=== PATIENT | female | born 1945 | race Caucasian/White ===

== ENCOUNTER → 2016-07-31 | Outpatient (CLI) | payer BC ==
[~2016-07-31] MED LIST: ATV/1 PO; COEN90TA PO; Calcium PO; LEVO50TA6 PO; METO25TA3 PO; MULT-506 PO; SERT50TA PO; SIMV20TA5 PO; TPRSR/25 PO
--- NOTE | 2016-08-01 07:42 | MAMMOGRAPHY REPORT ---
BILATERAL DIGITAL SCREENING MAMMOGRAM WITH CAD: 07/31/2016 CLINICAL HISTORY: Routine screening. Patient has no complaints. TECHNIQUE: Current study was also evaluated with a Computer Aided Detection (CAD) system. Bilatera l CC and MLO views were obtained. COMPARISON: Comparison is made to exams dated: 07/31/2015 mammogram, 06/18/2012 mammogram, 06/18/2010 m ammogram - [facility], 05/23/2008, 05/20/2007, and 05/19/2006. BREAST COMPOSITION: There are scattered areas of fibroglandular density in both breasts. FINDINGS: There are possible faint grouped calcifications seen within the left upper outer quadrant , for which spot magnification views are recommended for further evaluation. The remainder of both breasts are stable compared to prior exams, without suspicious masses, calcifi cations, or areas of architectural distortion noted. Other scattered bilateral coarse benign-appear ing calcifications are again noted. IMPRESSION: ACR BI-RADS CATEGORY 0: INCOMPLETE EVALUATION: NEED ADDITIONAL IMAGING EVALUATION Left upper outer quadrant calcifications, for which additional imaging evaluation is recommended. T he patient will be called to schedule an appointment. Approximately 10% of breast cancers are not detected with mammography. A negative mammographic repor t should not delay biopsy if a clinically suggestive mass is present. Jazmin Armstrong M.D. ah/:07/31/2016 16:35:17 Propeller Engineer: Monika BREAUX(R)(M), [facility] letter sent: Addl Imaging 0 BI-RADS Code: ACR BI-RADS Category 0: Incomplete Evaluation: Need Additional Imaging Evaluation
== END | disposition home or self-care (01) ==
LOC: C.MAMM 14:00
PROVIDERS: ATTEND Internal Medicine
DX: Z12.31 Encounter for screening mammogram for malignant neoplasm of breast (principal); R92.1 Mammographic calcification found on diagnostic imaging of breast

== ENCOUNTER → 2016-08-12 | Outpatient (CLI) | payer BC ==
--- NOTE | 2016-08-12 16:30 | MAMMOGRAPHY REPORT ---
UNILATERAL LEFT DIGITAL DIAGNOSTIC MAMMOGRAM: 08/12/2016 CLINICAL HISTORY: 71-year-old woman called back from screening mammography for possible faint microc ode calcifications in the left upper outer quadrant. History of previous left breast excisional bio psy which yielded benign fibrocystic change. TECHNIQUE: Spot magnification left CC and ML views were obtained. COMPARISON: Comparison is made to exams dated: 07/31/2016 mammogram, 07/31/2015 mammogram, 06/18/2012 ma mmogram, 06/18/2010 mammogram - [facility], 05/23/2008, and 05/20/2007. BREAST COMPOSITION: There are scattered areas of fibroglandular density in the left breast. FINDINGS: Spot magnification left ML view demonstrates grouped microcalcifications in the superior middle one third of the breast, measuring approximately 5 mm in maximum dimension. The correspondin g spot magnification views of both the medial and lateral left breast demonstrate faint microcalcifi cations in the medial posterior and lateral posterior aspect of the breast. In addition, there are other increasing benign coarse calcifications throughout the visualized left breast. In the lateral left breast, there are 2-3 faint punctate microcalcifications in a loose grouping. In the medial p osterior aspect of the left breast, there are faint punctate and amorphous microcalcifications with possible associated nodular asymmetry measuring 3 mm. All of the calcifications seen in the left br east are increased compared to prior available mammograms and given the multiple locations could rep resent benign fibrocystic changes. However, biopsy of the most numerous cluster in the medial, post erior left breast is recommended. Pending pathology results, could follow the grouped calcification s in the lateral left breast in 6 months to ensure stability. IMPRESSION: ACR BI-RADS CATEGORY 4: SUSPICIOUS 1. Left breast stereotactic guided biopsy is recommended for a 3 mm cluster of faint punctate and a morphous micro-calcifications in the medial posterior left breast. 2. Pending benign pathology results, would follow the grouped microcalcifications in the lateral po sterior left breast in 6 months, to ensure stability. These results and recommendations were discussed with the patient at the time of the exam. She tenta tively scheduled the biopsy appointment prior to leaving our department. Approximately 10% of breast cancers are not detected with mammography. A negative mammographic repor t should not delay biopsy if a clinically suggestive mass is present. Erica Simms M.D. ay/:08/12/2016 14:45:32 Cement Tile Maker: Lori Merrill, [facility] letter sent: Abnormal 4/5 BI-RADS Code: ACR BI-RADS Category 4: Suspicious
== END | disposition home or self-care (01) ==
LOC: C.MAMM 08:46
PROVIDERS: ATTEND Internal Medicine
DX: R92.0 Mammographic microcalcification found on diagnostic imaging of breast (principal)

== ENCOUNTER → 2016-09-04 | Outpatient (CLI) | payer BC ==
--- NOTE | 2016-09-04 13:25 | Discharge Instructions ---
Discharge Instructions Procedure Procedure Date: September 04, 2016. Reason for visit: Left Medial Calcifications. Discharge Discharge Date: September 04, 2016. Discharge Diagnosis: status post breast biopsy Instructions Activity Recommendations: Additional Limitations (see below) Return to School/Work: no limitations Recommended Home Diet: No Limitations Provider Instructions: ACTIVITY RECOMMENDATIONS: * No lifting, pushing, pulling or exercising the affected side for three days. RETURN TO SCHOOL/WORK: * You may return to work/school after the procedure, but do not perform any strenuous activities for 24 to 48 hours. MEDICATIONS: * Tylenol (two 325 mg) every four to six hours if needed for mild pain (if not allergic to Tylenol). DIET: * Resume previous diet. SPECIAL CARE INSTRUCTIONS: * Keep biopsy site dry for 24 hours. May shower after 24 hours, but do not soak (bathe) incision. * May remove Tegaderm (plastic patch) tomorrow AFTER showering. * Leave the steri-strips on for one week. Allow the steri-strips to fall off by themselves. If not off after one week, you may remove them. You may place a Bandaid crosswise over the strips, if desired. * Apply ice 10 minutes on and 10 minutes off as needed. * Wear a bra at bedtime to sleep more comfortably for 2-3 days. * Your referring physician should have the results after approximately 5 to 7 business days. * Call for unusual bleeding, fever, drainage, etc or if you have any questions call during normal business hours or after hours call Dr Armstrong, . FOLLOW UP VISIT: Follow-up with Referring Physician as scheduled. Allergies Coded Allergies: No Known Allergies (Verified , 05/21/15) Liliana Taylor Recommendations: Call your doctor if: * Temperature above 101 degrees * Pain not relieved by pain medicine ordered * There is increased drainage or redness from any incision * You have any unanswered questions or concerns. Your Doctors Instructions noted above were prepared by provider Jazmin Armstrong. Patient Signature Section: Patient Instructions Signature Page [facility] [place] Patient (or Guardian) Signature/Date: I have read and understand the instructions given to me by my caregivers. Caregiver/RN/Doctor Signature/Date: The above-named patient and/or guardian has received patient instructions on this date. + Original Patient Signature Page (only) stays with chart. Please make copy for patient.
--- NOTE | 2016-09-05 15:06 | MAMMOGRAPHY REPORT ---
THIS REPORT HAS BEEN AMENDED. AMENDMENT: 09/10/2016 Jazmin Armstrong M.D. Pathology from stereotactic biopsy of left medial breast calcifications was reviewed on 09/10/2016. The pathology shows fibrocystic and columnar cell change with microcalcifications, which is concorda nt with the imaging findings. As recommended on the prior diagnostic mammogram report, recommend fol low-up diagnostic mammograms of the left breast in 6 months to confirm stability of left lateral rufino ast calcifications. STEREOTACTIC GUIDED BIOPSY LEFT BREAST: 09/04/2016 CLINICAL HISTORY: Indeterminate calcifications in the left medial breast. PATIENT CONSENT: The procedure, risks, benefits, and alternatives of stereotactic biopsy with clip p lacement were discussed with the patient, and verbal and written consent was obtained. A timeout wa s performed immediately prior to the procedure. PROCEDURE DESCRIPTION: With stereotactic guidance, aseptic technique, and lidocaine as a local anest hetic (1% lidocaine to anesthetize the skin and 1% lidocaine with epinephrine to anesthetize the jennifer per tissues), the area of concern in the left medial breast was sampled multiple times with a 9-gaug e vacuum-assisted biopsy needle ([place]). The path of approach was craniocaudal. The specimen radiograph demonstrates calcifications to be present in the samples. A metallic marker clip was pl aced at the biopsy site. This was confirmed on postprocedure mammograms. Direct pressure was appli ed at the biopsy site and hemostasis was readily achieved. The patient tolerated the procedure with out complication. She was given wound care instructions. COMPARISON: Comparison is made to exams dated: 07/31/2016 mammogram, 08/12/2016 mammogram, 07/31/2015 ma mmogram, 06/18/2012 mammogram, and 06/18/2010 mammogram - [facility]. IMPRESSION: STEREOTACTIC GUIDED BIOPSY Stereotactic biopsy of indeterminate calcifications in the left medial breast, with clip placement. The patient will receive pathology results from her referring provider. Pending benign pathology r esults, recommend follow-up diagnostic mammograms of the left breast in 6 months to reevaluate left lateral breast calcifications, as recommended on the prior diagnostic mammogram report. Jazmin Armstrong M.D. /:09/04/2016 13:40:42 Wax Ball Knock Out Worker: Lori BREAUX(Renay)(M), [facility]
--- NOTE | 2016-09-05 15:06 | MAMMOGRAPHY REPORT ---
UNILATERAL LEFT DIGITAL DIAGNOSTIC MAMMOGRAM: 09/04/2016 CLINICAL HISTORY: Status post left breast stereotactic biopsy. TECHNIQUE: Left CC and ML and MLO views were obtained. COMPARISON: Comparison is made to exams dated: 08/12/2016 mammogram, 07/31/2015 mammogram, 06/18/2012 m ammogram, 06/18/2010 mammogram - [facility], and 05/23/2008. BREAST COMPOSITION: There are scattered areas of fibroglandular density in the left breast. FINDINGS: Preprocedural left cc views were obtained for biopsy planning purposes. Postprocedural l eft CC and ML and MLO views were obtained, which shows a new biopsy marker clip in the left upper in ner quadrant status post stereotactic biopsy of left medial breast calcifications. There is probabl e mild inferior migration of the biopsy clip from the biopsy site approximately 10 mm, likely due to accordion effect. A small hematoma is seen at the biopsy site measuring approximately 19 mm. IMPRESSION: POST PROCEDURE IMAGING FOR MARKER PLACEMENT New biopsy marker clip status post left breast stereotactic biopsy. Pathology results are pending. Approximately 10% of breast cancers are not detected with mammography. A negative mammographic repor t should not delay biopsy if a clinically suggestive mass is present. Jazmin Armstrong M.D. ah/:09/04/2016 13:50:20 Medical Record Specialist: Lori NICHOLSON)(M), [facility] BI-RADS Code: Post Procedure Imaging For Marker Placement
== END | disposition home or self-care (01) ==
LOC: C.MAMM 12:36
PROVIDERS: ATTEND Internal Medicine
DX: R92.0 Mammographic microcalcification found on diagnostic imaging of breast (principal)

== ENCOUNTER → 2017-01-12 | Outpatient (CLI) | payer BC ==
[2017-01-12 15:55] LABS: RHEUMATOID FACTOR < 10.0 U/mL (0-15)
== END | disposition home or self-care (01) ==
LOC: C.LAB1850 14:28
PROVIDERS: ATTEND Internal Medicine
DX: M25.50 Pain in unspecified joint (principal); M81.0 Age-related osteoporosis without current pathological fracture; E03.9 Hypothyroidism, unspecified

== ENCOUNTER → 2017-02-17 | Day surgery (SDC) | payer BC ==
[2017-01-29 13:15] VITALS: Ht 157.5 cm; Wt 63.6 kg
[~2017-02-17] VITALS: Ht 157.5 cm; Wt 63.6 kg
[~2017-02-17] MED LIST changes: +500ML BSS 0.3ML EPI 1:1000PF IRRIG ONE; +ACETAMINOPHEN 325 MG TAB PO PRN; +AMVISC PLUS 0.8ML SYRINGE INT OCU ONE; +ATROPINE SULFATE 0.1 MG/ML 5ML SYR IV PRN; +BSS FLUSH ONE; -COEN90TA PO; -Calcium PO; +EpHEDrine SULFATE INJ 50 MG/ML AMP IV PRN; +EpINEphrine INJ 1MG/ML AMP 1 MG/ML AMP ONE; +LACTATED RINGER'S 1000ML 500 ML IV SCH; +LIDOCAINE 3.5% OPH GEL PER APPLICATION CHARGE ONE; +LIDOCAINE HCL 1% MPF 2 ML VIAL ONE; +MIDAZOLAM HCL 1 MG/ML 2ML VIAL ONE; +OCUCOAT 1 ML SOLN IO ONE; +POVIDONE-IODINE OP SOLN 30 ML BTL ONE; +PROPARACAINE 0.5% OP SOLN PER DROP CHARGE OPL SCH; +TOBRAMYCIN/DEXAMETHASONE OPH OINT PER APPLN CHARGE ONE; -TPRSR/25 PO
[2017-02-17] MEDS: PHENYLEPHRINE HCL 2.5% OP SOLN PER DROP CHARGE OPL SCH ×2 (11:21→11:27)
[2017-02-17] MEDS: TROPICAMIDE 1% OP SOLN PER DROP CHARGE OPL SCH ×2 (11:22→11:28)
[2017-02-17] MEDS: CYCLOPENTOLATE HCL 1% OP SOLN PER DROP CHARGE OPL SCH ×2 (11:23→11:31)
[2017-02-17] MEDS: KETOROLAC 0.5% OP SOLN PER DROP CHARGE OPL SCH ×2 (11:24→11:31)
[2017-02-17] MEDS: GATIFLOXACIN OP SOLN PER DROP CHARGE OPL SCH ×2 (11:26→11:38)
--- NOTE | 2017-02-17 11:50 | History & Physical Bridge - SC ---
H&P Re-Evaluation Bridge Note: I have examined the patient, reviewed the History & Physical and in the interval since the performance of the History & Physical I have noted the following changes of clinical significance: No changes noted
--- NOTE | 2017-02-17 12:23 | [facility] Operative Report ---
Operative Report Date of Service Feb 17, 2017. Operative Report 1. PREOPERATIVE DIAGNOSIS: Cataract of the left eye. 2. POSTOPERATIVE DIAGNOSIS: Same. 3. PROCEDURE: Phacoemulsification with intraocular lens implantation of the left eye. SURGEON: Dr. Olivier Mosqueda. ANESTHESIA: Topical Lidocaine gel, 1% Non- Preserved intracameral Lidocaine, and monitored intravenous sedation. INDICATIONS FOR THE PROCEDURE: The patient is a 72 - year-old female with a history of cataract of the left eye causing significant visual impairment. The details of the proposed procedure were explained to the patient who asked appropriate questions and following discussion of all risks, benefits and alternatives agreed to have the procedure done. 4. OPERATION AND FINDINGS: DESCRIPTION OF PROCEDURE: After informed consent was obtained, the patient was brought to the Operating Room at the [facility]. The patient was placed in a supine position and then the left eye was prepped and draped in the usual sterile fashion for intraocular surgery. A drop of topical Lidocaine gel was placed in the operative eye. A wire lid speculum was then placed in the fornices. A corneal paracentesis was then created temporally. The Non-Preserved Lidocaine was then instilled into the anterior chamber. The anterior chamber was then pressurized with viscoelastic. A 2.0 mm clear corneal incision was then created temporally. A cystotome was inserted into the anterior chamber and used to create a tear in the anterior lens capsule. This capsular tear was then used to create a small flap and the flap was dragged in a counterclockwise direction in order to create a continuous curvilinear capsulorrhexis. Hydrodissection was accomplished with balanced salt solution. Phacoemulsification of the lens nucleus was then performed in a standard [id number] technique. The phaco time was 24 seconds with an average power of 15 %. The remaining cortical material was removed using irrigation aspiration. The capsular bag was then filled with viscoelastic. A B[employer]ch [employer] Lomb MI60L +18.5 diopters lens was then loaded into the injector and injected into the capsular bag. The remaining viscoelastic was removed with the irrigation aspiration handpiece. The wound was hydrated and then checked and found to be watertight. The intraocular pressure was checked and found to be adequate. The wire lid speculum was removed and the patient's face was cleaned and dried. TobraDex ointment was placed in the inferior fornix. The patient was discharged to the Recovery Room having tolerated the procedure well. There were no complications. The patient will be seen tomorrow in the office for follow-up. I attest to the content of the Intraoperative Record and any orders documented therein. Any exceptions are noted below.
--- NOTE | 2017-02-17 12:23 | Discharge Instructions-SurgCtr ---
Discharge Instructions Date of Service Feb 17, 2017. Visit Reason for Visit: Left Cataract Discharge Discharge Diagnosis / Problem: cataract Discharge Goals Goal(s): Improve function Activity Recommendations Activity Limitations: per Instructions/Follow-up section Anesthesia . Post Anesthesia Instructions: If you have had General Anesthesia or IV Sedation: * Do not drive today. * Resume driving when surgeon permits. * Do not make important decisions or sign legal documents today. * Call surgeon for: 1. Temperature elevations greater than 101 degrees F. 2. Uncontrollable pain. 3. Excessive bleeding. 4. Persistent nausea and vomiting. 5. Medication intolerance (nausea, vomiting or rash). * For nausea and vomiting use only clear liquids such as: tea, soda, bouillon until nausea subsides, then gradually increase diet as tolerated. * If you have any concerns or questions, call your surgeon's office. If physician is unavailable and it is an emergency, call 911 or go to the nearest emergency room. . Diet Recommendations Home Diet: resume previous diet Procedures Procedures Performed: Left Cataract Phacoemulsification With Intraocular Lens Implant Pending Studies Studies pending at discharge: no Medical Emergencies . Who to Call and When: Medical Emergencies: If at any time you feel your situation is an emergency, please call 911 immediately. . Non-Emergent Contact Non-Emergency issues call your: Inside Technical Sales Representative . . "Provider Documentation" section prepared by Olivier Mosqueda. .
--- NOTE | 2017-02-17 12:40 | Anesthesia Progress Nt - [facility] ---
Anesthesia Post Op Note Date & Time Feb 17, 2017 at 12:39 Vital Signs Pain Intensity: 0 Vital Signs Past 12 Hours Date Time Temp Pulse Resp B/P (MAP) Pulse Ox O2 Delivery O2 Flow Rate FiO2 02/17/17 12:25 36.5 78 16 115/73 (87) 96 Room Air 02/17/17 11:14 37.1 73 16 153/90 (111) 96 Room Air Notes Mental Status: alert / awake / arousable, participated in evaluation Pt Amnestic to Procedure: Yes Nausea / Vomiting: adequately controlled Pain: adequately controlled Airway Patency, RR, SpO2: stable & adequate BP & HR: stable & adequate Hydration State: stable & adequate Anesthetic Complications: no major complications apparent
[2017-02-17 12:42] VITALS: BP 119/74; PULSE 78; O2SAT 98
== END | disposition home or self-care (01) ==
LOC: X.SURG 11:05
PROVIDERS: ATTEND Ophthalmology

== ENCOUNTER → 2017-04-14 | Outpatient (CLI) | payer BC ==
[~2017-04-14] MED LIST changes: -500ML BSS 0.3ML EPI 1:1000PF IRRIG ONE; -ACETAMINOPHEN 325 MG TAB PO PRN; -AMVISC PLUS 0.8ML SYRINGE INT OCU ONE; -ATROPINE SULFATE 0.1 MG/ML 5ML SYR IV PRN; -BSS FLUSH ONE; -EpHEDrine SULFATE INJ 50 MG/ML AMP IV PRN; -EpINEphrine INJ 1MG/ML AMP 1 MG/ML AMP ONE; -LACTATED RINGER'S 1000ML 500 ML IV SCH; -LIDOCAINE 3.5% OPH GEL PER APPLICATION CHARGE ONE; -LIDOCAINE HCL 1% MPF 2 ML VIAL ONE; -MIDAZOLAM HCL 1 MG/ML 2ML VIAL ONE; -OCUCOAT 1 ML SOLN IO ONE; -POVIDONE-IODINE OP SOLN 30 ML BTL ONE; -PROPARACAINE 0.5% OP SOLN PER DROP CHARGE OPL SCH; -TOBRAMYCIN/DEXAMETHASONE OPH OINT PER APPLN CHARGE ONE
[2017-04-14 10:33] LABS: ALT/SGPT 22 U/L (12-78); AST/SGOT 15 U/L (15-37); BLOOD UREA NITROGEN 15 mg/dl (7-18); BUN/CREATININE RATIO 18.2 (10-20); CALCIUM 9.1 mg/dl (8.5-10.1); CARBON DIOXIDE 28 mmol/L (21-32); CHLORIDE 107 mmol/L (98-107); CHOLESTEROL 175 mg/dl (0-200); CREATININE 0.81 mg/dl (0.60-1.20); GLUCOSE 93 mg/dl (70-99); POTASSIUM 4.5 mmol/L (3.5-5.1); SODIUM 138 mmol/L (136-145)
[2017-04-14 10:35] LABS: CHOLESTEROL/HDL RATIO 2.8; HDL CHOLESTEROL 62 mg/dl; LDL CHOLESTEROL CALCULATED 90 mg/dl; TRIGLYCERIDES 115 mg/dl (0-150); VERY LOW DENSITY LIPOPROT CALC 23 mg/dl
== END | disposition home or self-care (01) ==
LOC: C.LAB1850 09:03
PROVIDERS: ATTEND Internal Medicine
DX: E78.00 Pure hypercholesterolemia, unspecified (principal); I10 Essential (primary) hypertension

== ENCOUNTER → 2017-08-04 | Outpatient (CLI) | payer BC ==
--- NOTE | 2017-08-06 07:55 | MAMMOGRAPHY REPORT ---
BILATERAL DIGITAL SCREENING MAMMOGRAM TOMOSYNTHESIS WITH CAD: 08/04/2017 CLINICAL HISTORY: Routine screening. Patient has no complaints. TECHNIQUE: Breast tomosynthesis in addition to standard 2D mammography was performed. Current study was also evaluated with a Computer Aided Detection (CAD) system. COMPARISON: Comparison is made to exams dated: 06/18/2010 mammogram, 06/18/2012 mammogram, 07/31/2015 ma mmogram, 07/31/2016 mammogram, 08/12/2016 mammogram, and 09/04/2016 stereotactic biopsy - [facility]. BREAST COMPOSITION: There are scattered areas of fibroglandular density in both breasts. FINDINGS: There is a stable dumbbell-shaped biopsy marker clip in the lower inner posterior left imer st, denoting the site of prior benign stereotactic biopsy. A second grouping of faint microcalcifica tions in the upper outer middle one third of the left breast have coarsened and now appears similar t o other rodlike secretory calcifications in both breasts, confirming benignity. No new suspicious ma ss, architectural distortion or cluster of microcalcifications is seen. IMPRESSION: ACR BI-RADS CATEGORY 1: NEGATIVE There is no mammographic evidence of malignancy. A 1 year screening mammogram is recommended. The pa tient will receive written notification of the results. Approximately 10% of breast cancers are not detected with mammography. A negative mammographic report should not delay biopsy if a clinically suggestive mass is present. Erica Simms M.D. ay/:08/04/2017 16:20:46 Hammer Operator: Lori BREAUX(R)(M), [facility] letter sent: Normal 1/2 BI-RADS Code: ACR BI-RADS Category 1: Negative
== END | disposition home or self-care (01) ==
LOC: C.MAMM 09:00
PROVIDERS: ATTEND Internal Medicine
DX: Z12.31 Encounter for screening mammogram for malignant neoplasm of breast (principal)

== ENCOUNTER 2020-11-06 05:29 | Observation (INO) ==
--- NOTE | 2020-10-04 15:17 | PAT Medication Instructions ---
Medication Instructions Date of Service October 04, 2020 Home Medications Medication Instructions Recorded simvastatin 20 mg tablet 20 mg PO QPM #90 tab 07/18/20 simvastatin 20 mg tablet 20 mg PO QPM loratadine [Claritin] 10 mg PO DAILY PRN lorazepam 0.5 mg PO HS PRN metoprolol succinate 25 mg PO HS sertraline 50 mg PO HS DO NOT take the morning of surgery loratadine [Claritin] 10 mg PO DAILY PRN Take evening before surgery simvastatin 20 mg tablet 20 mg PO QPM loratadine [Claritin] 10 mg PO DAILY PRN (if needed) lorazepam 0.5 mg PO HS PRN (if needed) metoprolol succinate 25 mg PO HS sertraline 50 mg PO HS Other Notes If you have any questions please call us at [phone] or [phone] or [phone] or [phone]
--- NOTE | 2020-10-05 11:41 | Anesthesiology Consultation ---
Date of Service October 05, 2020 Assessment & Plan (1) Encounter for pre-operative examination: COVID screening: Per assessment on 10/05: Travel screen negative, no known COVID- 19 positive contacts or current COVID-19 related symptoms. Patient vaccinated. Surgeon arranging preop COVID testing (scheduled 11/02; [place]). Awaiting results. Chart Review Chart Review: Acceptable Risk for Surgery and Patient seen in Pre Admission Testing Teaching & Discussion Pre-Anesthesia Teaching/Discussion Notes: Instructed NPO after midnight before surgery,except medications with 15 cc of water. Medication instructions provided according to the PAT guidelines. History Surgery Operation Date: 11/06/20 10:40 Proposed Procedures p Right Total Hip Arthroplasty - Kemal Berry MD Height/Weight Height: 5 ft 2 in Weight: 63 kg Allergies Allergy/AdvReac Type Severity Reaction Status Date / Time No Known Allergies Allergy Verified 10/04/20 13:46 Medications Home Medications Medication Instructions Recorded Confirmed Last Taken simvastatin 20 mg tablet 20 mg PO QPM #90 tab 07/18/20 10/05/20 Unknown metoprolol succinate 25 mg PO HS 10/04/20 10/05/20 Unknown sertraline 50 mg PO HS 10/04/20 10/05/20 Unknown Wheeled Walker #1 ea 10/05/20 10/05/20 Unknown lorazepam 0.5 mg tablet 0.5 mg PO DAILY PRN 10/05/20 10/05/20 Unknown Past Medical History Medical History Anxiety Dyslipidemia History of basal cell carcinoma HTN (hypertension) Hypothyroidism Insomnia Osteoarthritis Exercise / Class Metabolic Activity II 4-5 Yardwork/Stairs/Walk up hill Past Family History Family History Father Liver cancer Colorectal cancer Other No family history of adverse response to anesthesia Denies family history of Ovarian cancer Prostate cancer Myocardial infarction Breast cancer Past Surgical History Surgical History History of basal cell carcinoma (BCC) excision History of breast biopsy History of colonoscopy History of partial thyroidectomy (~1988) History of tooth extraction S/P cataract surgery Past Anesthesia History No Hx of Anesthesia Complications and No Family Hx of Anesthesia Complications History of PONV No Hx of PONV and No Hx of Motion Sickness Social History Smoking Status: Never smoker Do You Dip or Chew Tobacco: No Hx Alcohol Use: No Hx Substance Use: No substance use type: does not use Review of Systems + snoring. No witnessed apnea events. Patient denies chest pain, shortness of breath, dyspnea on exertion, reflux, cough, wheezing, palpitations. Physical Exam Vital Signs VITALS BP 134/83 P 75 TEMP 98.4 SP02 96%RA RESP 16 PHYSICAL Full cervical extension range of motion. Full TMJ range of motion. TMD 4 finger breaths Mallampati Score 3 Dentition: intact, + implants (molars) Lungs: clear throughout to auscultation Cardiac: regular rate and rhythm, no murmurs noted Spine: normal Carotid arteries: negative bruit Extremities: no edema Lab Results Anesthesia Preop Results Results Anesthesia Widget: WBC 8.75 K/uL (4.8-10.8) 10/05/20 Hgb 13.2 g/dL (12.0-16.0) 10/05/20 Hct 41.0 % (37-47) 10/05/20 Plt 297 K/uL (130-400) 10/05/20 Na 140 mmol/L (136-145) 10/05/20 K 5.1 mmol/L (3.5-5.1) 10/05/20 Cl 108 mmol/L (98-107) H 10/05/20 CO2 28 mmol/L (21-32) 10/05/20 BUN 12 mg/dl (7-18) 10/05/20 Creat 0.77 mg/dl (0.6-1.2) 10/05/20 Glucose Level 85 mg/dl (70-99) 10/05/20 PT 10.3 Seconds (9.0-12.0) 10/05/20 PTT 23.9 Seconds (21.0-31.0) 10/05/20 INR 1.0 (0.9-1.1) 10/05/20 Blood Type A Negative 10/05/20 Antibody Screen NEGATIVE 10/05/20 Testing Electrocardiogram Date: 10/05/20 Findings: + NSR @ (66) Chest X-Ray Date: 10/05/20 FINDINGS: Mild diffuse interstitial thickening which is likely chronic. No focal lung consolidations to suggest pneumonia. No evidence for pulmonary edema. The heart is normal in size. There is a mildly tortuous thoracic aorta. Degenerative changes seen within the thoracic spine and shoulders. No pleural effusions. No pneumothorax. IMPRESSION: No acute process within the chest. Chronic changes as described above.
--- NOTE | 2020-11-02 18:00 | History and Physical Report ---
DATE OF ADMISSION: 11/06/2020 CHIEF COMPLAINT: Persistent right hip pain and discomfort. HISTORY OF PRESENT ILLNESS: The patient is a 75-year-old female who presents for surgical treatment of her right hip. She has a several-year history of increasing right hip pain and discomfort that grossman s gradually gotten worse over the past 3 to 4 years. No particular injury. Pain initially started l aterally, but is now radiating into her groin area. She is fairly active and having difficulty maint aining the degree of activity level. She is able to bike some, but having difficulty doing any signi ficant walking. She limps more as the day goes on. She has good and bad days, but more bad days hilary n good anymore. She has difficulty putting her shoes and socks on. She would like to have her right hip fixed. PAST MEDICAL HISTORY: 1. Hypertension. 2. Elevated cholesterol. 3. Arthritis. PAST SURGICAL HISTORY: Includes, 1. Thyroid lobe removal. 2. Cataract surgery. 3. Basal cell skin cancer. ALLERGIES: None. CURRENT MEDICATIONS: 1. Simvastatin. 2. Sertraline. 3. Metoprolol. 4. Lorazepam. SOCIAL HISTORY: A 75-year-old female who lives in [place]. 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 She used to work at [employer]. Does not smoke. Very active. FAMILY HISTORY: Noncontributory. REVIEW OF SYSTEMS: Negative for diabetes, neurologic problem, vascular problems or bleeding disorder s. No chest pain or shortness of breath. No history of DVT or PE. PHYSICAL EXAMINATION: GENERAL: A healthy appearing small-statured female. Looks to be in excellent health. HEENT: Benign. NECK: Supple. No lymphadenopathy. LUNGS: Clear to auscultation. HEART: Has a regular rate and rhythm. ABDOMEN: Soft, nontender, nondistended. EXTREMITIES: Grossly neurovascularly intact except as follows; examination of the right hip reveals the patient walks with a slight limp. She is about 0.5 cm short on the right side compared to the le ft. She has pain with any type of hip motion. She got a very stiff hip. She can internally rotate to neutral. Negative straight leg raise. No knee effusion. X-RAYS: X-rays of the right hip were reviewed. It shows advanced right hip DJD. She has got complet e loss of her superior joint space. She has got a medial osteophyte. She has got cystic changes on both sides of the joint. X-rays of the lumbar spine were also reviewed. It shows some degenerative spondylolisthesis at L4-L5 . Mild to moderate disease at best. ASSESSMENT: A 75-year-old female with advanced right hip degenerative joint disease bounding her act ivities. She has failed conservative treatment and would like to have her right hip fixed. PLAN: We will take her to the operating room and do right total hip replacement. The risks and bene fits of this procedure were explained to the patient that include but not limited to DVT, PE, , infection, neurological injury, vascular injury, bleeding problem, pain, limited range of motion, sti ffness, failure to relieve her symptoms, incomplete relief of symptoms, need for further surgery in t he future, fracture, leg length inequality, nerve palsy, dislocation, etc. The patient understands a nd desires to proceed. Informed consent was obtained. She is planning to be discharged to home using [facility] program. Job ID: [id number]
[2020-11-06] MEDS ORDERED: LR 500ML BOLUS, THEN 15ML/HR IV SCH (06:00)
[2020-11-06] MEDS ORDERED: ACETAMINOPHEN 500 MG TAB PO SCH (06:00)
[2020-11-06] MEDS ORDERED: FAMOTIDINE 20 MG TAB PO SCH (06:00)
[2020-11-06] MEDS ORDERED: GABAPENTIN 300 MG CAP PO SCH (06:00)
[2020-11-06] MEDS ORDERED: ceFAZolin 2000MG 2,000 MG/15 ML SYR IV SCH (06:00)
[2020-11-06] MEDS ORDERED: TRANEXAMIC ACID 1,000 MG **IV Pre-op IV SCH (06:00)
[2020-11-06] MEDS ORDERED: BUPIVACAINE 0.5 % 5 MG/1 ML PF 10ML VIAL ONE (06:20)
[2020-11-06] MEDS ORDERED: BUPIVACAINE/EPINEPHRINE 0.5% MPF 1:200,000 30 ML VIAL ONE (06:34)
[2020-11-06] MEDS ORDERED: PROPOFOL IV EMULSION 10 MG/ML 20 ML VIAL IV ONE (06:44)
[2020-11-06] MEDS ORDERED: MIDAZOLAM HCL 1 MG/ML 2ML VIAL ONE (06:44)
[2020-11-06] MEDS ORDERED: MoRPHine SULFATE PF 1 MG/ML 10 ML AMP/VIAL ONE (06:51)
--- NOTE | 2020-11-06 06:54 | History & Physical Bridge Note ---
Date of Service November 06, 2020 History & Physical Bridge Note I have examined the patient, reviewed the History & Physical and in the interval since the performance of the History & Physical I have noted the following changes of clinical significance: no changes noted
[2020-11-06] MEDS ORDERED: PROMETHAZINE HCL 25 MG in SODIUM CHLORIDE 0.9% 50 ML IV PRN (07:23)
[2020-11-06] MEDS ORDERED: diphenhydrAMINE 50 MG/ML VIAL IV PRN (07:23)
[2020-11-06] MEDS ORDERED: ONDANSETRON INJ 2 MG/ML 2 ML VIAL IV PRN (07:23)
[2020-11-06] MEDS ORDERED: NALOXONE HCL 0.08 MG in SYRINGE 1.8 ML IV PRN (07:23)
[2020-11-06] MEDS ORDERED: LACTATED RINGER'S 500 ML IV PRN (07:23)
[2020-11-06] MEDS ORDERED: NALBUPHINE HCL INJ 10 MG/ML AMP IV PRN (07:23)
[2020-11-06] MEDS ORDERED: MoRPHine SULFATE PF 1 MG/ML 10 ML AMP/VIAL INT SPINAL ONE (07:23)
[2020-11-06] MEDS ORDERED: NALOXONE HCL 0.4 MG/1 ML VIAL/CARP IV PRN ×2 (07:23→09:22)
[2020-11-06] MEDS ORDERED: NALOXONE HCL 1 MG in SODIUM CHLORIDE 0.9% 1000ML 1,000 ML IV PRN (07:23)
[2020-11-06] MEDS ORDERED: HYDROmorphone INJ 0.5 MG/0.5 ML SYR IV PRN (07:23)
[2020-11-06] MEDS ORDERED: ePHEDrine sulfate 50 MG/ML AMP IV PRN (07:23)
[2020-11-06] MEDS ORDERED: ONDANSETRON INJ 2 MG/ML 2 ML VIAL ONE (07:25)
[2020-11-06] MEDS ORDERED: PHENYLEPHRINE 100MCG/ML 5ML SYR ONE (07:25)
[2020-11-06] MEDS ORDERED: ePHEDrine sulfate 50 MG/ML SYR ONE (07:25)
[2020-11-06] MEDS ORDERED: SODIUM CHLORIDE 0.9% 1000ML 1,000 ML IV SCH (07:30)
[2020-11-06] MEDS ORDERED: NO NARCOTICS OR SEDATIVES SCH (07:30)
--- NOTE | 2020-11-06 08:45 | Operative Report ---
Post Operative Report Pre & Post Diagnosis Operation Date: 11/06/20 07:00 Pre-Op Diagnosis: Right Hip Advanced Degenerative Joint Disease Post-Op Diagnosis: Right Hip Advanced Degenerative Joint Disease I identified the patient and participated in the time-out.: Yes Procedure Operation Date: 11/06/20 07:00 Actual Procedures p Right Total Hip Arthroplasty--Uncemented(Right) - Kemal Berry MD Surgeon Kemal Berry MD Derivatives Trader JESUS Gray Estimated Blood Loss 200 Findings Consistent with Post-Op Diagnosis Operative findings revealed advanced right hip DJD. She had extensive grade 4 [id number] disease of the femoral head and acetabulum. She had a large hip joint effusion. Smart synovitis. Fluids 1100 cc Specimens Right femoral head sent for pathology. Drains None Anesthesia Type Spinal MAC Complications none Disposition Accompanied Patient To Recovery: Yes Disposition: Recovery Room Indications Patient is a 75-year-old female is had a several year history of gradual progressive increased right hip pain discomfort. She been through extensive conservative treatment which became less successful over time. X-ray showed progressive hip arthritis. She failed conservative measures and elected proceed with surgical treatment. Description of Procedure Operative implants consist of: 1. Biomet G7 size 48 mm acetabular shell. 2. 6.5 cancellous acetabular screws 1 of 35 mm length and 1 of 20 mm length. 3. Lillie hole scrap baller. 4. Highly cross-linked polyethylene liner with a 48 mm outer diameter and 32 mm inner diameter. 5. DePuy Corail size 9/125 degree angle short neck femoral stem. 6. +5/36 mm ceramic articular ball. Patient was taken to the operating, identified, placed on the operating table supine position but all contractors were properly padded. IV antibiotics tried by anesthesia team. Spinal anesthetic and been implemented holding area. Choudhary cath was placed in sterile fashion for the patient then placed in the left lateral cubitus position. Axillary roll was placed. A Stulberg hip positioner was used for positioning. The right hip and leg were then reprepped and draped in usual sterile fashion. A posterior lateral approach to the right hip was then performed to a curvilin ear incision centered over the greater trochanter. Sharp dissection was carried through subcutaneous tissue down to level the IT band gluteal fascia the IT band gluteal fascia then incised longitudinally in line with skin incision. The underlying greater bursa was excised. The piriformis and external rotators and the posterior hip joint capsule were then released from the posterior aspect of the hip as a single layer. Great care was taken throughout the procedure protect the sciatic nerve at all times. The hip was internally rotated and dislocated. Femoral neck osteotomy cut was made with Final Cut 5 mm above the lesser trochanter. Femoral head was removed and sent for pathology. The femur was retracted anteriorly. Attention drawn to the acetabulum. The acetabular labrum was excised per the pulmonary fat was excised. Sequential reaming the acetabular was then performed again with size 43 and progressing up to 47. I did reamed a little bit with a 48 reamer and then placed a 48 mm cup. It was placed in about 40 degrees lateral opening and 20 degrees of anteversion. It was fixed with two 6.5 cancellous acetabular screws. A trial liner was placed. Attention drawn the femur. The proximal femur was entered with a cookie-cutter followed by canal finder. I then broached begin the size 8 and progressing up to a 9. We got good fit with a 9. Then trialed the hip and the short neck seem to fit most appropriately. The +5 articular ball provide full stability in full extension and external rotation and flexion to 90 degrees and internal rotation over 50 degrees. Leg length and soft tissue seemed a appropriate and equal. I elect to place these implants. All trial implants were removed. An apex hole scrap baller was placed. Highly cross-linked polyethylene liner was placed. A DePuy size 9 KLA 125 degree angle short neck femoral stem was impacted in position. +5/32 mm ceramic articular ball was placed and hip was located with once again found to be stable. Attention drawn toward closing. The wound was irrigated scope soft pulsatile lavage solution. I did inject locally with 60 cc of half percent Marcaine with epinephrine. The posterior capsule and external rotators then repaired as a single layer through drill holes in the posterior trochanter. The IT band gluteal fascia then closed #1 PDS suture in a running fashion the subcutaneous tissue then closed with 2 layers the deep layer #1 Vicryl suture and subcutaneous tissues with 2 Dexon suture in a buried interrupted fashion. Skin was closed skin winnie. Leg was then cleaned dried a sterile dressing was Xeroform, 4 x 4's, sterile ABD pad and foam tape was applied. Patient then transferred to the recovery room in stable condition. Patient tolerated procedure well and there were no complications. Mayank Gray, my physician retail event assistant, was present for the entire procedure. His assistance was essential and required for appropriate patient positioning, prepping and draping, surgical exposure, performing the technical details of the operation, placement the implants, closure of the wound, and placement of the sterile bandage. I attest to the content of the Intraoperative Record and any orders documented therein. Any exceptions are noted below.
--- NOTE | 2020-11-06 08:59 | XRay Report ---
XR hip 1V RT w pelvis HISTORY: 75 years-old Female IN PACU - A/P PELVIS and LATERAL HIP right hip total joint arthroplast y COMPARISON: CT abdomen and pelvis 02/04/2007 TECHNIQUE: AP view of the pelvis with crosstable lateral view of the right hip FINDINGS: Mild left posteroparietal. No acute fracture, dislocation or unexpected opaque foreign body. Right hi p total joint arthroplasty demonstrates satisfactory alignment. Lateral skin winnie are present in a ddition to expected postoperative soft tissue swelling with deep tissue air. IMPRESSION: Right hip total joint arthroplasty with expected postoperative changes. ACT 112: Negative or not required by law. The above report was generated using voice recognition software. It may contain grammatical, syntax o r spelling errors. Electronically signed by: Breezy Torres M.D. 11/06/2020 8:58 AM
[2020-11-06] MEDS ORDERED: METOCLOPRAMIDE HCL INJ 5 MG/ML 2 ML VIAL IV PRN (09:22)
[2020-11-06] MEDS ORDERED: MAGNESIUM HYDROXIDE SUSP 30 ML UDC PO PRN (09:22)
[2020-11-06] MEDS ORDERED: ALUMINUM/MAGNESIUM SUSP 30 ML UDC PO PRN (09:22)
[2020-11-06] MEDS ORDERED: bisacodyL 10 MG SUPP PR PRN (09:22)
--- NOTE | 2020-11-06 09:39 | Anesthesiology Progress Note ---
Date of Service November 06, 2020 Anesthesia Post Procedure Vital Signs Vital Signs: Temp Pulse Pulse Resp BP Pulse Ox Pulse Ox 11/06/20 09:25 36.5 C 80 16 129/76 96 96 11/06/20 09:00 36.3 C L 80 15 116/67 96 11/06/20 08:50 85 16 125/65 93 11/06/20 08:40 76 10 L 121/74 98 11/06/20 08:30 88 15 134/72 99 11/06/20 08:23 36.4 C L 78 20 156/84 H 99 11/06/20 06:00 36.9 C 78 20 151/89 H 98 Transfer of Care Handoff Completed per policy Notes Mental Status: alert / awake / arousable and participated in evaluation Patient Amnestic to Procedure: Yes Nausea / Vomiting: adequately controlled Pain: adequately controlled Airway Patency, RR, SpO2: stable & adequate BP & HR: stable & adequate Hydration State: stable & adequate Anesthetic Complications: no major complications apparent and Pt Satisfied with anesthetic care
[2020-11-06] MEDS: SODIUM CHLORIDE 0.9% 1000ML 1,000 ML IV SCH ×2 (09:44→19:16)
[2020-11-06] MEDS: KETOROLAC TROMETHAMINE 15 MG/ML VIAL IV SCH ×3 (12:01→23:00)
[2020-11-06] MEDS: ASPIRIN 81 MG ECTAB PO SCH ×2 (12:01→20:51)
[2020-11-06] MEDS: DOCUSATE SODIUM 100 MG CAP PO SCH ×2 (12:01→20:51)
[2020-11-06] MEDS: MULTIVITAMIN TAB PO SCH (12:01)
[2020-11-06] MEDS: ACETAMINOPHEN 500 MG TAB PO SCH ×2 (13:53→20:52)
[2020-11-06] MEDS: ceFAZolin 1000MG 1,000 MG/7.5 ML SYR IV SCH ×2 (13:54→21:31)
[2020-11-06] MEDS ORDERED: TRANEXAMIC ACID / 0.7% NACL 1,000 MG/100 ML BAG IV SCH (14:36)
[2020-11-06] MEDS: ASCORBIC ACID 500 MG TAB PO SCH (17:16)
[2020-11-06] MEDS ORDERED: SERTRALINE HCL 50 MG TABLET PO SCH (21:00)
[2020-11-06] MEDS ORDERED: SIMVASTATIN 20 MG TAB PO SCH (21:00)
[2020-11-06] MEDS ORDERED: SENNA 8.6 MG TAB PO SCH (21:00)
[2020-11-06] MEDS ORDERED: METOPROLOL SUCC 25MG EXT REL TAB PO SCH (21:00)
[2020-11-07] MEDS ORDERED: DC INTRASPINAL MORPHINE SCH (01:23)
[2020-11-07] MEDS ORDERED: HYDROmorphone INJ 0.5 MG/0.5 ML SYR IV PRN (01:24)
[2020-11-07] MEDS ORDERED: traMADol HCL 50 MG TABLET PO PRN (01:24)
[2020-11-07] MEDS ORDERED: ONDANSETRON INJ 2 MG/ML 2 ML VIAL IV PRN (01:24)
[2020-11-07] MEDS ORDERED: LORazepam 0.5 MG TAB PO PRN (01:24)
[2020-11-07] MEDS: ACETAMINOPHEN 500 MG TAB PO SCH (05:03)
[2020-11-07] MEDS: KETOROLAC TROMETHAMINE 15 MG/ML VIAL IV SCH ×2 (05:03→11:54)
[2020-11-07 05:38] LABS: Basophils # (auto) 0.01 K/uL (0-0.2); Basophils % (auto) 0.1 %; Eosinophils # (auto) 0.11 K/uL (0-0.5); Eosinophils % (auto) 0.9 %; Hematocrit (blood only) 31.8 % (37-47); Hemoglobin 10.4 g/dL (12.0-16.0); Immature Granulocytes # (auto) 0.02 K/uL (0.00-0.02); Immature Granulocytes % (auto) 0.2 %; Lymphocytes % (auto) 17.3 %; Mean Corpuscular Hemoglobin 28.3 pg (25-34); Mean Corpuscular Hgb Conc 32.7 g/dL (32-36); Mean Corpuscular Volume 86.6 fL (80-100); Mean Platelet Volume 8.7 fL (7.4-10.4); Monocytes # (auto) 1.03 K/uL (0.11-0.59); Monocytes % (auto) 8.5 %; Neutrophils # (auto) 8.84 K/uL (1.4-6.5); Platelet Count 217 K/uL (130-400); RDW Coefficient of Variation 13.9 % (11.5-14.5); RDW Standard Deviation 43.9 fL (36.4-46.3); Red Blood Count 3.67 M/uL (4.2-5.4); White Blood Count 12.11 K/uL (4.8-10.8)
[2020-11-07 06:02] LABS: BUN Creatinine Ratio 18.9 (10-20); Creatinine Clr Calc Pharmacy 78.7 ml/min; Est GFR (African American) 107.8 ml/min; Est GFR (Non-African American) 93.1 ml/min; Potassium 3.7 mmol/L (3.5-5.1)
[2020-11-07] MEDS ORDERED: dexAMETHasone 10 MG in SYRINGE 0 ML IV SCH (08:00)
[2020-11-07] MEDS: ASCORBIC ACID 500 MG TAB PO SCH (08:43)
[2020-11-07] MEDS: ASPIRIN 81 MG ECTAB PO SCH (08:44)
[2020-11-07] MEDS: MULTIVITAMIN TAB PO SCH (08:45)
[2020-11-07] MEDS: DOCUSATE SODIUM 100 MG CAP PO SCH (08:45)
--- NOTE | 2020-11-07 15:09 | Progress Notes ---
DATE OF SERVICE: 11/07/2020. SUBJECTIVE: A 75-year-old female postop day 1 from right hip replacement. She is doing pretty well. Pain is controlled. Therapy is going reasonably well. No chest pain or shortness of breath. Not feeling dizzy or lightheaded. OBJECTIVE: VITAL SIGNS: Temperature 37.2. Vital signs stable. GENERAL: Physical examination shows a pleasant elderly female. Sitting up in her bedside chair, loo ks pretty comfortable. LUNGS: Clear to auscultation. HEART: Regular rate and rhythm. ABDOMEN: Soft, nontender, nondistended. EXTREMITIES: Grossly neurovascularly intact except as follows. Examination of the right hip and leg reveals the dressing to be clean, dry and intact. Leg lengths w ere equal. Hip is located. She can dorsiflex and plantarflex her foot appropriately. Her thigh is soft and supple. She is neurologically intact. LABORATORY DATA: Hemoglobin is 10.4. Hematocrit 31.8. White cell count 12.11. Electrolytes are st able. ASSESSMENT: A 75-year-old white female postop day 1 from right hip replacement, doing pretty well. Pain is controlled. Hip is located. Mild anemia. Asymptomatic. White cell count elevated, likely related to stress. PLAN: 1. DVT prophylaxis include thigh-high TEDs, SCDs, and aspirin twice a day. 2. PT, OT, weightbear as tolerated. Right total hip protocol. 3. Pain control, doing okay with current pain regimen. 4. Disposition; plan to discharge to home with some home health once medically stable and does okay in therapy. Job ID: [id number]
--- NOTE | 2020-11-09 06:37 | Discharge Summary ---
Date of Service November 09, 2020 Discharge Data Procedures Performed Operation Date: 11/06/20 07:00 Actual Procedures p Right Total Hip Arthroplasty--Uncemented(Right) - Kemal Berry MD Hospital Course (1) Status post total hip replacement, right: This is a 75 year old patient admitted on 11/06/20 and underwent total hip arthroplasty. She tolerated the procedure well and there were no complications. Transferred to the PACU post op and later to the orthopedic floor for further care. She was given ancef for antibiotic prophylaxis. She was also given CHIKIS stockings, SCDs, and aspirin for DVT prophylaxis. Hemoglobin, hematocrit, and vital signs were monitored during her hospital stay and remained stable. Did not require any blood transfusions. There were no complications during her hospital stay. By post op day #1 the patient was tolerating a regular diet, pain was reasonably controlled with oral pain medicine, and she was participating in physical therapy. On post op day #1 the patient was discharged home and set up with home health care. She was given printed discharge instructions including prescriptions for extra strength tylenol, aspirin, and tramadol. Continue physical therapy, weight bearing as tolerated. Continue hip precautions. Continue CHIKIS stockings. Follow up approximately 2 weeks post op or sooner if there are problems or concerns. Coding Level of Care Code None Diagnoses Status post total hip replacement, right Z96.641
== END 2020-11-07 15:37 | disposition home health service (06) ==
LOC: ASU 05:29 → 3E 05:29